=== PATIENT | female | born 1990 | race Caucasian/White ===

== ENCOUNTER 2017-02-13 01:04 | Inpatient (IN) | payer OTHER ==
[~2017-02-13] VITALS: Ht 158.8 cm; Wt 68.0 kg
[2017-02-13] MEDS ORDERED: PROMETHAZINE HCL 25 MG/1 ML VIAL IM ONE (01:45)
[2017-02-13] MEDS ORDERED: HYDROMORPHONE 1 MG/1 ML DISP.SYRIN IM ONE (01:45)
--- NOTE | 2017-02-13 01:45 | NUR ---
Given Dilaudid and Phenergan IM x 1 as ordered.
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
[2017-02-13] MEDS ORDERED: PROMETHAZINE HCL 25 MG/1 ML VIAL ONE (01:50)
[2017-02-13] MEDS ORDERED: HYDROMORPHONE 2 MG/1 ML DISP.SYRIN ONE (01:50)
--- NOTE | 2017-02-13 02:00 | NUR ---
Sent urine to lab
--- NOTE | 2017-02-13 02:00 | NUR ---
Transferred to [facility] with assistance.
[2017-02-13] MEDS ORDERED: TRAZ-147 PO (02:01)
[2017-02-13] MEDS ORDERED: METH54TA PO (02:01)
[2017-02-13] MEDS ORDERED: CLON1TAB PO (02:01)
[2017-02-13] MEDS ORDERED: SERT100T PO (02:01)
[2017-02-13 02:11] LABS: *BILIRUBIN,URIN NEGATIVE (NEGATIVE); *BLOOD, URINE Trace-intact (NEGATIVE); *CLARITY,URINE CLEAR (CLEAR); *COLOR,URINE YELLOW (YELLOW); *KETONES,URINE NEGATIVE (NEGATIVE); *PROTEIN,URINE NEGATIVE (NEGATIVE); *UROBILINOGEN,URINE 0.2 E.U./dl (NORMAL); LEUKOCYTE ESTERASE ,URINE NEGATIVE (NEGATIVE); NITRITE, URINE NEGATIVE (NEGATIVE); PH,URINE 8.5 (5.0-8.0); UGLUCOSE NEGATIVE (NEGATIVE)
--- NOTE | 2017-02-13 02:15 | NUR ---
Resting comfortably, significant other at the bedside.
[2017-02-13 02:16] LABS: *URINE HCG, QUAL NEGATIVE (NEGATIVE)
[2017-02-13 02:22] LABS: BACTERIA,URINE NONE SEEN /HPF (NONE SEEN); RBC,URINE 0-3 /HPF (0-3); SQUAMOUS EPITHELIAL CELL,UR FEW /HPF (NONE SEEN); WBC,URINE 0-3 /HPF (0-3)
--- NOTE | 2017-02-13 03:00 | NUR ---
Seen by MD for re-evaluation and the plans.Pt seems to be wanting to stay in the hospital instead of going home.
--- NOTE | 2017-02-13 03:30 | NUR ---
Report to CAROLINA Moe. Called bed at 0305.
[2017-02-13 03:40] LABS: BASOPHILS # (AUTO) 0.1 K/uL (0.0-0.2); BASOPHILS % (AUTO) 1.2 % (0.0-2.0); EOSINOPHILS % (AUTO) 0.2 % (0.0-7.0); HEMATOCRIT 38.5 % (37.0-47.0); HEMOGLOBIN 12.6 g/dL (12.0-16.0); LYMPHOCYTES # (AUTO) 1.3 K/uL (0.8-4.8); LYMPHOCYTES % (AUTO) 19.7 % (20.5-51.5); MEAN CORPUSCULAR HEMOGLOBIN 28.9 uug (27.0-31.0); MEAN CORPUSCULAR HGB CONC 33 g/dL (32.0-37.0); MEAN CORPUSCULAR VOLUME 87.9 fL (81.0-99.0); MONOCYTES # (AUTO) 0.4 K/uL (0.1-1.30); NEUTROPHILS # (AUTO) 4.8 K/uL (1.8-8.9); NEUTROPHILS % (AUTO) 72.9 % (38.5-71.5); PLATELET COUNT (AUTO) 323 K/uL (150-450); RED BLOOD CELL COUNT(AUTO) 4.38 MIL/uL (4.20-5.40); RED CELL DISTRIBUTION WIDTH 12.8 % (11.5-14.5); WHITE BLOOD COUNT (AUTO) 6.6 K/uL (4.0-11.2)
[2017-02-13 03:52] LABS: CALCIUM 8.4 mg/dL (8.5-10.1); CREATININE 0.8 mg/dL (0.6-1.3); POTASSIUM 3.7 mmol/L (3.5-5.1)
[2017-02-13 03:57] LABS: ALBUMIN 3.9 g/dL (3.4-5.0); BILIRUBIN,TOTAL 0.4 mg/dL (0.2-1.0); TOTAL PROTEIN, SERUM 7.4 g/dL (6.4-8.2)
[2017-02-13] MEDS ORDERED: HYDROCODONE/APAP 5-325MG TABLET PO PRN (04:00)
[2017-02-13] MEDS ORDERED: MAGNESIUM HYDROXIDE 30 ML LIQUID UDC PO PRN (04:00)
[2017-02-13] MEDS ORDERED: Z GUARD REMEDY PASTE 57 GM TUBE TOP PRN (04:00)
[2017-02-13] MEDS ORDERED: ACETAMINOPHEN 325 MG TABLET PO PRN (04:00)
[2017-02-13] MEDS ORDERED: TEMAZEPAM 7.5 MG CAPSULE PO PRN (04:00)
[2017-02-13] MEDS ORDERED: PIPERACILLIN/TAZOBACTAM/D5W 50 ML IV ONE (04:09)
--- NOTE | 2017-02-13 04:10 | NUR ---
TRansferred patient to 2nd floor room 225. Accepting RN acknowledge patient's admission. Transferred pt from [facility] to hospital bed.Ensured safety. Pt requesting for another pain medicine, notified CAROLINA Shirley.
[2017-02-13] MEDS: HYDROMORPHONE 1 MG/1 ML DISP.SYRIN IV PRN ×2 (04:38→10:25)
[2017-02-13 05:00] VITALS: BP 141/105
[2017-02-13] MEDS: PANTOPRAZOLE SODIUM 40 MG TABLET.DR PO SCH (07:20)
[2017-02-13] MEDS ORDERED: SERTRALINE HCL 100 MG TABLET PO SCH (09:00)
[2017-02-13] MEDS ORDERED: CLONAZEPAM 1 MG TABLET PO SCH (09:00)
[2017-02-13] MEDS ORDERED: TRAZODONE 100 MG TABLET PO SCH (09:00)
[2017-02-13] MEDS ORDERED: METHYLPHENIDATE HCL 54 MG PO SCH (09:00)
[2017-02-13] MEDS: ONDANSETRON 4 MG/2 ML VIAL IV PRN ×3 (09:40→23:57)
[2017-02-13 12:07] VITALS: BP 141/92
[2017-02-13] MEDS ORDERED: HYDROMORPHONE 1 MG/1 ML DISP.SYRIN IV PRN (14:30)
[2017-02-13] MEDS ORDERED: HYDROMORPHONE 2 MG/1 ML DISP.SYRIN IV PRN (14:45)
[2017-02-13 16:00] VITALS: BP 122/89
[2017-02-13] MEDS ORDERED: HYDROMORPHONE 2 MG/1 ML DISP.SYRIN IM PRN (17:45)
[2017-02-13] MEDS: HYDROMORPHONE 2 MG/1 ML DISP.SYRIN IV PRN ×2 (18:22→22:31)
[2017-02-13 20:00] VITALS: BP 141/104
[2017-02-13] MEDS: SERTRALINE HCL 100 MG TABLET PO SCH (20:35)
[2017-02-13] MEDS: CLONAZEPAM 1 MG TABLET PO SCH (20:36)
[2017-02-13] MEDS: TRAZODONE 100 MG TABLET PO SCH (21:00)
[2017-02-13] MEDS: IV NS 1000 ML 1,000 ML IV PRN (22:08)
[2017-02-13] MEDS: diphenhydrAMINE 25 MG CAP PO PRN (22:30)
[2017-02-13] MEDS ORDERED: diphenhydrAMINE 25 MG CAP PO ONE (22:37)
--- NOTE | 2017-02-14 01:00 | NUR ---
DR. NIKITA SO ([facility]) CAME TO SEE THE PT IN REGARDS OF PT'S INSURANCE AND PCP HX. POSSIBLE D/C TODAY
[2017-02-14] MEDS: HYDROMORPHONE 2 MG/1 ML DISP.SYRIN IV PRN ×6 (02:17→23:02)
[2017-02-14 05:00] VITALS: BP 125/83
[2017-02-14] MEDS: diphenhydrAMINE 25 MG CAP PO PRN ×5 (05:12→23:02)
[2017-02-14] MEDS ORDERED: diphenhydrAMINE 25 MG CAP PO ONE (05:19)
[2017-02-14] MEDS: ONDANSETRON 4 MG/2 ML VIAL IV PRN ×3 (06:53→20:26)
--- NOTE | 2017-02-14 07:33 | NUR ---
PT CONTINUE TO HAVE LOWER ABDOMINAL PAIN ,CALL FOR PAIN SHOT DILAUDID EVERY 4 HRS, ITCHY FROM DILAUDID AND GET ORDER FOR BENADRYL ORAL, NO COMPLAINS OF PAIN WHEN VOIDING.NAUSEA BUT NO VOMITING. IV FLUIDS INFUSING WELL TO LAC. ALL NEEDS ATTENDED, CALL LIGHT AT REACHED.
[2017-02-14] MEDS: PANTOPRAZOLE SODIUM 40 MG TABLET.DR PO SCH (07:45)
[2017-02-14 09:22] LABS: CALCIUM 8.2 mg/dL (8.5-10.1); CREATININE 0.7 mg/dL (0.6-1.3); MAGNESIUM 1.9 mg/dL (1.8-2.4); PHOSPHOROUS 3.9 mg/dL (2.5-4.9); POTASSIUM 3.7 mmol/L (3.5-5.1)
[2017-02-14 09:26] LABS: BASOPHILS % (AUTO) 0.7 % (0.0-2.0); EOSINOPHILS # (AUTO) 0.1 K/uL (0.0-0.7); EOSINOPHILS % (AUTO) 1.1 % (0.0-7.0); HEMATOCRIT 35.6 % (37.0-47.0); HEMOGLOBIN 11.9 g/dL (12.0-16.0); LYMPHOCYTES # (AUTO) 1.6 K/uL (0.8-4.8); LYMPHOCYTES % (AUTO) 28.5 % (20.5-51.5); MEAN CORPUSCULAR HEMOGLOBIN 29.2 uug (27.0-31.0); MEAN CORPUSCULAR HGB CONC 33 g/dL (32.0-37.0); MEAN CORPUSCULAR VOLUME 87.4 fL (81.0-99.0); MONOCYTES # (AUTO) 0.4 K/uL (0.1-1.30); NEUTROPHILS # (AUTO) 3.4 K/uL (1.8-8.9); NEUTROPHILS % (AUTO) 61.7 % (38.5-71.5); PLATELET COUNT (AUTO) 287 K/uL (150-450); RED BLOOD CELL COUNT(AUTO) 4.07 MIL/uL (4.20-5.40); RED CELL DISTRIBUTION WIDTH 12.6 % (11.5-14.5); WHITE BLOOD COUNT (AUTO) 5.5 K/uL (4.0-11.2)
[2017-02-14 11:54] VITALS: BP 119/84
--- NOTE | 2017-02-14 12:00 | NUR ---
PT REQUESTED NORCO IN BETWEEN OF DILAUDID ADMINISTRATION. "NO" PER DR. SHELTON
[2017-02-14] MEDS: IV NS 1000 ML 1,000 ML IV PRN (12:39)
[2017-02-14 15:48] VITALS: BP 144/100
--- NOTE | 2017-02-14 16:25 | NUR ---
PT IS LAYING IN BED COMFORTABLY. NO S/S OF RESPIRATORY DISTRESS NOTED. O2 AT 2L NC. ALL SAFETY NEEDS ARE MET. IV INTACT/PATENT. WILL CONTINUE TO MONITOR. Addendum: 02/14/17 at 1626 by TOMASA RAYA RN WRONG TIME DOCUMENTED. OCCURRENCE AT 0716
--- NOTE | 2017-02-14 16:33 | NUR ---
14:48 Was on hold for 50 minutes from [facility] until I finally spoke to Anne [ ] and she stated that we need the U/M Department - . Geovanna from the U/M Department stated that we have to submit the clinical reviews to the [facility]. 15:36 Spoke to Eusebia [ ; ] and faxed her all of the patient's info. She authorized for her hospitalization until tomorrow and will be referring her to a urologist and a pain management MD as an outpatient. Updated the patient and instead of saying thank you, she stated that she will have to call her insurance and make sure they extend her hospital stay. CM/SW will follow-up.
[2017-02-14 19:00] VITALS: BP 150/107
--- NOTE | 2017-02-14 19:03 | NUR ---
pt is sitting in bed comfortably. no s/s of respiratory distress noted. Pt is on O2 at 2L. No pain noted. All safety needs are met.
--- NOTE | 2017-02-14 20:30 | NUR ---
PT'S A/A/O X 4 AND C/O NAUSEA;ZOFRAN 4 MG IVP X1 TO PT;EDUCATE TO PT;SHE VERBALIZED UNDERSTANDING AND COOPERATIVE. VISITED PT AT THIS TIME AND DISCUSSED THE PLAN OF CARE TO PT;PER PT STATED THAT"DOCTOR TALKED TO ME ABOUT 15 MINUTES".PT'S CRYING ON/OFF ~ 5 MINUTES AND STATED THAT "I UNDERSTOOD WHAT DOCTOR TRIED TO TELL ME".KEPT COMFORT.CALL-LIGHT WITHIN REACH.
[2017-02-14] MEDS: TRAZODONE 100 MG TABLET PO SCH (21:00)
[2017-02-14] MEDS: CLONAZEPAM 1 MG TABLET PO SCH (21:05)
[2017-02-14] MEDS: SERTRALINE HCL 100 MG TABLET PO SCH (21:05)
[2017-02-15] MEDS: IV NS 1000 ML 1,000 ML IV PRN (02:01)
[2017-02-15] MEDS: diphenhydrAMINE 25 MG CAP PO PRN ×3 (02:50→11:09)
[2017-02-15] MEDS: HYDROMORPHONE 2 MG/1 ML DISP.SYRIN IV PRN ×3 (02:51→11:09)
[2017-02-15 04:00] VITALS: BP 120/89
[2017-02-15] MEDS: ONDANSETRON 4 MG/2 ML VIAL IV PRN ×2 (05:16→11:15)
--- NOTE | 2017-02-15 06:20 | NUR ---
PT SLEPT ON/OFF,STATED THAT SHE FELT BETTER THIS MORNING,TOLERATED WELL WITH TX ORDER.NO DISTRESS NOTED IN THE SHIFT.
[2017-02-15] MEDS: PANTOPRAZOLE SODIUM 40 MG TABLET.DR PO SCH (06:45)
[2017-02-15 09:52] LABS: BASOPHILS % (AUTO) 0.4 % (0.0-2.0); EOSINOPHILS # (AUTO) 0.1 K/uL (0.0-0.7); EOSINOPHILS % (AUTO) 1.7 % (0.0-7.0); HEMATOCRIT 36.3 % (37.0-47.0); HEMOGLOBIN 12.3 g/dL (12.0-16.0); LYMPHOCYTES # (AUTO) 1.6 K/uL (0.8-4.8); LYMPHOCYTES % (AUTO) 31.2 % (20.5-51.5); MEAN CORPUSCULAR HEMOGLOBIN 29.2 uug (27.0-31.0); MEAN CORPUSCULAR HGB CONC 34 g/dL (32.0-37.0); MEAN CORPUSCULAR VOLUME 86.3 fL (81.0-99.0); MONOCYTES # (AUTO) 0.4 K/uL (0.1-1.30); NEUTROPHILS % (AUTO) 59.7 % (38.5-71.5); PLATELET COUNT (AUTO) 311 K/uL (150-450); RED BLOOD CELL COUNT(AUTO) 4.21 MIL/uL (4.20-5.40); RED CELL DISTRIBUTION WIDTH 12.6 % (11.5-14.5); WHITE BLOOD COUNT (AUTO) 5.1 K/uL (4.0-11.2)
[2017-02-15 10:16] LABS: CALCIUM 9.1 mg/dL (8.5-10.1); CREATININE 0.8 mg/dL (0.6-1.3)
[2017-02-15 10:26] LABS: ALBUMIN 3.8 g/dL (3.4-5.0); BILIRUBIN,TOTAL 0.3 mg/dL (0.2-1.0); TOTAL PROTEIN, SERUM 7.2 g/dL (6.4-8.2)
[2017-02-15 11:08] LABS: LYMPHOCYTES % (MANUAL) 35 % (20-40); MONOCYTES % (MANUAL) 9 % (2-10); NEUTROPHILS % (MANUAL) 43 % (42-75)
[2017-02-15 11:09] LABS: EOSINOPHILS % (MANUAL) 5 % (0-8)
[2017-02-15 11:11] LABS: PLATELET ESTIMATE ADEQUATE
[2017-02-15 11:59] VITALS: BP 145/106
[2017-02-15 13:23] LABS: *BILIRUBIN,URIN NEGATIVE (NEGATIVE); *BLOOD, URINE NEGATIVE (NEGATIVE); *CLARITY,URINE CLEAR (CLEAR); *COLOR,URINE YELLOW (YELLOW); *KETONES,URINE NEGATIVE (NEGATIVE); *PROTEIN,URINE NEGATIVE (NEGATIVE); *UROBILINOGEN,URINE 0.2 E.U./dl (NORMAL); LEUKOCYTE ESTERASE ,URINE NEGATIVE (NEGATIVE); NITRITE, URINE NEGATIVE (NEGATIVE); PH,URINE 6.5 (5.0-8.0); UGLUCOSE NEGATIVE (NEGATIVE)
[2017-02-15 13:25] LABS: BACTERIA,URINE MODERATE /HPF (NONE SEEN); RBC,URINE NONE SEEN /HPF (0-3); SQUAMOUS EPITHELIAL CELL,UR MODERATE /HPF (NONE SEEN); WBC,URINE 0-3 /HPF (0-3)
[2017-02-15] MEDS ORDERED: PHENAZOPYRIDINE HCL 100 MG TABLET PO ONE ×2 (14:59→15:00)
--- NOTE | 2017-02-15 15:22 | NUR ---
The patient will be discharged today per Dr. Suresh. 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 She referred the patient to: Urologist: Dr. Giana Downs [address] [place] [address] Pain Management MD: [facility] Dr. Chandu Singh [address] [place] [address] Explained the discharge to the patient but she was crying and stated that she is in a lot of pain. Provided her with the authorization papers for her referrals and she acted like she didn't know what was happening. Explained to her again that there is no longer any acute needs for her and that she was referred to both MDs as an outpatient because she stated that she didn't have any urologist nor pain management MDs because she has a new insurance. When informed that she needs to call the above referrals to make an appointment, she stated that she already has a Pain Management MD. Her stories does not add up. Offered to make phone calls for her to get help at home or to help pick her up but she declined. She also denied any social and financial hardships. Her RN, Anabella, is aware of her discharge plan.
--- NOTE | 2017-02-15 15:40 | NUR ---
DISCHARGE PROTOCOL FOLLOWED, IV TAKEN OUT WITH NO REDNESS OR IRRITATION NOTED, ALL BELONGINGS ACCOUNTED FOR AND FORM SIGNED. PT UPSET ABOUT DISCHARGE HOWEVER REFUSING ALL THE HELP PROVIDED REGARDING INFORMATION ON FOLLOW UP CONSULTS AND PAIN MANAGEMENT. PT LEFT VIA WHEELCHAIR IN PRIVATE CAR.
== END 2017-02-15 15:30 | disposition home or self-care (01) | DRG 463 ==
LOC: ER 01:08 → MED 04:06
PROVIDERS: ADMIT Family Medicine; ATTEND Family Medicine
DX: N30.10 Interstitial cystitis (chronic) without hematuria (principal); D68.0 Von Willebrand disease; I10 Essential (primary) hypertension; F43.10 Post-traumatic stress disorder, unspecified; R00.0 Tachycardia, unspecified
CPT/HCPCS: 36415; 83735; 84100; 84703; 85025; 85610; A4663; J1170; J2405; J2543; J2550; J7030; Q0163